=== PATIENT | female | born 1930 | race Caucasian/White ===

== ENCOUNTER → 2016-09-10 | Outpatient (CLI) | payer MEDICARE, BC, MEDICAID ==
[~2016-09-10] MED LIST: ALMACONE 360 M360 ML PO; ANTIVERT 25MG25 MG PO; ARICEPT10 MG PO; CEFTIN500 MG PO; DESYREL 50MG50 MG PO; DETROL LA4 PO; GLUCOPHAGE500 MG/TAB PO; IMODIUM 2MG CAPS2 MG PO; LABETALOL100 MG PO; LEVAQUIN 5500 MG/TA1 PO; MECLIZINE25 MG PO; MULTI VITAMINS1 TAB PO; NEURONTIN300 MG/CAP PO; NORCO 325 MG-51 TAB PO; NORMODYNE200 MG PO; NORVASC 5MG5 MG/TAB PO; NORVASC2.5 MG PO; PHENERGAN12.5 MG/SU RC; PLAVIX 75MG TAB75 MG PO; PRINIVIL20 MG PO; PROPOXYPHENE1 UDTAB PO; QUESTRAN4 GM/9 GM PO; RISPERDAL 0.20.25 MG PO; STARLIX120 MG PO; TRANDATE 100MG100 MG PO; TYLENOL 325MG325 MG; ULTRAM 50MG TAB50 MG PO; VITAMIN C500 MG PO; VOLTAREN GEL 1%1 TU TP; ZESTRIL 20MG TA20 MG PO; ZESTRIL40 MG PO
[2016-09-10 16:03] LABS: MEAN CELL VOLUME 96 fl (80.0-100.0); MEAN CORPUSCULAR HGB CONC 35 g/dl (33.0-37.0); MEAN PLATELET VOLUME 9.8 fl (7.4-10.4); PLATELET COUNT 294 K/mm3 (130-400); RED BLOOD COUNT 3.21 M/mm3 (4.10-5.30); REDCELL DISTRIBUTION WIDTH-CV 12.8 % (11.5-14.5); WHITE BLOOD COUNT 6.5 K/mm3 (4.8-10.8)
[2016-09-10 16:13] LABS: HEMATOCRIT 30.9 % (37.0-47.0); HEMOGLOBIN 10.7 g/dl (12.5-16.0); MEAN CORPUSCULAR HEMOGLOBIN 33 pg (27.0-31.0)
[2016-09-10 16:15] LABS: ADJUSTED CALCIUM 10.1 mg/dL (8.4-10.2); ALBUMIN 3.7 gm/dL (3.5-5.0); BILIRUBIN,TOTAL 0.6 mg/dL (0.0-1.0); CALCIUM 9.9 mg/dL (8.4-10.2); CREATININE, serum 0.86 mg/dL (0.52-1.25); TOTAL PROTEIN 6.7 gm/dL (6.4-8.2)
[2016-09-10 16:44] LABS: THYROID STIMULATING HORMONE 1.63 uIU/mL (0.465-4.680)
== END ==
LOC: ZLAB.STJ 14:28
PROVIDERS: Internal Medicine
DX: E11.9 Type 2 diabetes mellitus without complications (principal)

== ENCOUNTER → 2016-09-27 | Outpatient (CLI) | payer MEDICARE, BC, MEDICAID | LOC: ZLAB.STJ 15:22 | DX: Z01.89 Encounter for other specified special examinations (principal) ==

== ENCOUNTER → 2016-12-20 | Outpatient (CLI) | payer MEDICARE, BC, MEDICAID | LOC: ZLAB.STJ 18:45 | DX: E11.9 Type 2 diabetes mellitus without complications (principal) ==

== ENCOUNTER → 2017-01-12 | Outpatient (CLI) | payer MEDICARE, BC, MEDICAID ==
[2017-01-12 17:00] LABS: PH 5 (5-8); SQUAMOUS EPITHELIAL 0-2 /hpf; URINE APPEARANCE Hazy; URINE BACTERIA Moderate /hpf; URINE BILIRUBIN Negative (NEGATIVE); URINE BLOOD Negative (NEGATIVE); URINE COLOR Amber; URINE GLUCOSE Negative (NEGATIVE); URINE KETONE Negative (NEGATIVE); URINE UROBILINOGEN Negative (NEGATIVE)
[2017-01-12 17:01] LABS: URINE WBC >50 /hpf
== END ==
LOC: ZCOL.LAB 16:37
PROVIDERS: Internal Medicine
DX: N39.0 Urinary tract infection, site not specified (principal)

== ENCOUNTER 2017-03-07 21:37 | Emergency (ER) | payer MEDICARE, BC, MEDICAID ==
[2005-09-17 17:18] VITALS: BP 151/85
[~2017-03-07] VITALS: Ht 157.5 cm; Wt 59.1 kg
[~2017-03-07 21:37] MED LIST changes: -ALMACONE 360 M360 ML PO; -DESYREL 50MG50 MG PO; -PHENERGAN12.5 MG/SU RC; -PRINIVIL20 MG PO; -TYLENOL 325MG325 MG
[2017-03-07 21:38] VITALS: BP 127/50; TEMP 97.6
[2017-03-07 23:52] VITALS: PULSE 69
[2017-03-08] MEDS ORDERED: PRINIVIL20 MG PO (05:09)
[2017-03-08] MEDS ORDERED: PHENERGAN12.5 MG/SU RC (05:12)
[2017-03-08] MEDS ORDERED: ALMACONE 360 M360 ML PO (05:12)
[2017-03-08] MEDS ORDERED: TYLENOL 325MG325 MG (05:13)
[2017-03-08] MEDS ORDERED: DESYREL 50MG50 MG PO (05:13)
[2017-03-08] MEDS ORDERED: MULTI VITAMINS1 TAB PO (05:14)
== END 2017-03-07 23:52 | disposition home or self-care (01) ==
LOC: COL.ER 21:37
DX: S09.90XA Unspecified injury of head, initial encounter (principal); S01.81XA Laceration without foreign body of other part of head, initial encounter; I10 Essential (primary) hypertension; Z23 Encounter for immunization; Z79.02 Long term (current) use of antithrombotics/antiplatelets; W18.39XA Other fall on same level, initial encounter; W22.09XA Striking against other stationary object, initial encounter; Y92.009 Unspecified place in unspecified non-institutional (private) residence as the place of occurrence of the external cause

== ENCOUNTER → 2017-03-22 | Outpatient (CLI) | payer MEDICARE, BC, MEDICAID ==
[~2017-03-22] MED LIST changes: +ALMACONE 360 M360 ML PO; +DESYREL 50MG50 MG PO; +PHENERGAN12.5 MG/SU RC; +PRINIVIL20 MG PO; +TYLENOL 325MG325 MG
[2017-03-22 15:51] LABS: BASO # 0.1 (0.0-0.2); BASO % 0.8 % (0.0-2.0); EOS # 0.2 (0.0-0.7); EOS % 2.4 % (0-4.0); GRAN # 5.9 (1.4-6.5); GRAN % 71.8 % (42.2-75.2); LYMPH # 1.5 (1.2-3.4); LYMPH % 18.6 % (20.0-51.0); MEAN CELL VOLUME 94 fl (80.0-100.0); MEAN CORPUSCULAR HGB CONC 35 g/dl (33.0-37.0); MEAN PLATELET VOLUME 9.4 fl (7.4-10.4); MONO # 0.5 (0.1-0.6); MONO % 5.9 % (1.7-9.3); PLATELET COUNT 286 K/mm3 (130-400); RED BLOOD COUNT 3.37 M/mm3 (4.10-5.30); REDCELL DISTRIBUTION WIDTH-CV 12.8 % (11.5-14.5); WHITE BLOOD COUNT 8.3 K/mm3 (4.8-10.8)
[2017-03-22 15:52] LABS: HEMATOCRIT 31.8 % (37.0-47.0); HEMOGLOBIN 11.1 g/dl (12.5-16.0); MEAN CORPUSCULAR HEMOGLOBIN 33 pg (27.0-31.0)
[2017-03-22 16:11] LABS: ADJUSTED CALCIUM 10.2 mg/dL (8.4-10.2); ALBUMIN 3.9 gm/dL (3.5-5.0); BILIRUBIN,TOTAL 0.5 mg/dL (0.0-1.0); CALCIUM 10.1 mg/dL (8.4-10.2); CREATININE, serum 0.93 mg/dL (0.52-1.25); POTASSIUM 5.4 mmol/L (3.4-5.0); TOTAL PROTEIN 6.8 gm/dL (6.4-8.2)
== END ==
LOC: ZLAB.STJ 15:44
PROVIDERS: Internal Medicine
DX: E11.9 Type 2 diabetes mellitus without complications (principal); I10 Essential (primary) hypertension

== ENCOUNTER → 2017-06-20 | Outpatient (CLI) | payer MEDICARE, BC, MEDICAID ==
[2017-06-20 09:51] LABS: BASO # 0.1 (0.0-0.2); BASO % 0.9 % (0.0-2.0); EOS # 0.3 (0.0-0.7); EOS % 4.6 % (0-4.0); GRAN # 4.1 (1.4-6.5); LYMPH # 1.8 (1.2-3.4); LYMPH % 26.8 % (20.0-51.0); MEAN CELL VOLUME 98 fl (80.0-100.0); MEAN CORPUSCULAR HGB CONC 34 g/dl (33.0-37.0); MEAN PLATELET VOLUME 10.2 fl (7.4-10.4); MONO # 0.4 (0.1-0.6); MONO % 6.4 % (1.7-9.3); PLATELET COUNT 239 K/mm3 (130-400); RED BLOOD COUNT 3.29 M/mm3 (4.10-5.30); WHITE BLOOD COUNT 6.7 K/mm3 (4.8-10.8)
[2017-06-20 09:53] LABS: HEMATOCRIT 32.2 % (37.0-47.0); MEAN CORPUSCULAR HEMOGLOBIN 33 pg (27.0-31.0)
[2017-06-20 10:08] LABS: ADJUSTED CALCIUM 10.3 mg/dL (8.4-10.2); ALBUMIN 3.9 gm/dL (3.5-5.0); BILIRUBIN,TOTAL 0.6 mg/dL (0.0-1.0); CALCIUM 10.2 mg/dL (8.4-10.2); CREATININE, serum 0.94 mg/dL (0.52-1.25); POTASSIUM 4.3 mmol/L (3.4-5.0); TOTAL PROTEIN 7.1 gm/dL (6.4-8.2)
[2017-06-20 10:36] LABS: THYROID STIMULATING HORMONE 1.96 uIU/mL (0.465-4.680)
== END ==
LOC: ZLAB.STJ 09:39
PROVIDERS: Internal Medicine
DX: I25.10 Atherosclerotic heart disease of native coronary artery without angina pectoris (principal); E11.9 Type 2 diabetes mellitus without complications; E03.9 Hypothyroidism, unspecified; I10 Essential (primary) hypertension

== ENCOUNTER 2017-07-14 10:31 | Inpatient (IN) | payer MEDICARE, BC, MEDICAID ==
[~2017-07-14] VITALS: Ht 157.5 cm; Wt 65.9 kg
[2017-07-14 11:01] LABS: BASO # 0.1 (0.0-0.2); BASO % 0.4 % (0.0-2.0); EOS # 0.1 (0.0-0.7); EOS % 0.4 % (0-4.0); GRAN # 9.5 (1.4-6.5); GRAN % 81.2 % (42.2-75.2); LYMPH # 1.4 (1.2-3.4); LYMPH % 12.3 % (20.0-51.0); MEAN CELL VOLUME 96 fl (80.0-100.0); MEAN CORPUSCULAR HGB CONC 34 g/dl (33.0-37.0); MEAN PLATELET VOLUME 10.5 fl (7.4-10.4); MONO # 0.6 (0.1-0.6); MONO % 5.2 % (1.7-9.3); PLATELET COUNT 214 K/mm3 (130-400); RED BLOOD COUNT 3.24 M/mm3 (4.10-5.30); REDCELL DISTRIBUTION WIDTH-CV 12.6 % (11.5-14.5)
[2017-07-14 11:03] LABS: HEMATOCRIT 31.2 % (37.0-47.0); HEMOGLOBIN 10.7 g/dl (12.5-16.0); MEAN CORPUSCULAR HEMOGLOBIN 33 pg (27.0-31.0)
[2017-07-14 11:18] LABS: INFLUENZA A NEGATIVE; INFLUENZA B NEGATIVE
[2017-07-14] MEDS ORDERED: TYLENOL 325MG325 MG PO (11:52)
[2017-07-14] MEDS ORDERED: VOLTAREN GEL 1%1 TU TP (11:53)
[2017-07-14 11:56] LABS: ALBUMIN 3.8 gm/dL (3.5-5.0); BILIRUBIN,TOTAL 0.6 mg/dL (0.0-1.0); CALCIUM 9.6 mg/dL (8.4-10.2); CREATININE, serum 1.14 mg/dL (0.52-1.25); MAGNESIUM 1.6 mg/dL (1.6-2.3); PHOSPHOROUS 3.2 mg/dL (2.5-4.5); POTASSIUM 3.1 mmol/L (3.4-5.0); TOTAL PROTEIN 6.8 gm/dL (6.4-8.2)
[2017-07-14 12:08] LABS: TROPONIN-I 0.046 ng/mL (0.000-0.034)
[2017-07-14 12:15] LABS: COLLECTION METHOD CATHETER
[2017-07-14 12:25] LABS: MUCOUS Present /lpf; PH 5 (5-8); SQUAMOUS EPITHELIAL 0-2 /hpf; URINE APPEARANCE Cloudy; URINE BACTERIA Rare /hpf; URINE BILIRUBIN Negative (NEGATIVE); URINE BLOOD 1+ (NEGATIVE); URINE COLOR Amber; URINE GLUCOSE Negative (NEGATIVE); URINE KETONE Trace (NEGATIVE); URINE LEUKOCYTE ESTERASE 3+ (NEGATIVE); URINE NITRATE Positive (NEGATIVE); URINE PROTEIN(semi-quant) 2+ (NEGATIVE); URINE UROBILINOGEN >=4.0 mg/dL (NEGATIVE)
[2017-07-14 14:24] VITALS: BP 129/52; PULSE 58; TEMP 98.3
[2017-07-14] MEDS ORDERED: IMODIUM 2MG CAPS2 MG PO (14:24)
[2017-07-14] MEDS ORDERED: ALMACONE 360 M360 ML PO (14:24)
[2017-07-14] MEDS ORDERED: PHENERGAN25 MG RC (14:26)
[2017-07-14 16:29] VITALS: BP 142/53; PULSE 61; TEMP 98.6
[2017-07-14 20:05] VITALS: BP 142/58; PULSE 77; TEMP 98
[2017-07-14 21:55] VITALS: BP 147/42; PULSE 72
[2017-07-15 00:51] VITALS: BP 143/36; PULSE 75; TEMP 98.7
[2017-07-15 04:54] VITALS: BP 148/51; PULSE 63; TEMP 97.4
[2017-07-15 06:43] LABS: BASO % 0.5 % (0.0-2.0); EOS # 0.3 (0.0-0.7); EOS % 3.9 % (0-4.0); GRAN # 3.8 (1.4-6.5); GRAN % 59.1 % (42.2-75.2); LYMPH # 1.8 (1.2-3.4); LYMPH % 28.8 % (20.0-51.0); MEAN CELL VOLUME 99 fl (80.0-100.0); MEAN CORPUSCULAR HGB CONC 33 g/dl (33.0-37.0); MEAN PLATELET VOLUME 10.1 fl (7.4-10.4); MONO # 0.5 (0.1-0.6); MONO % 7.4 % (1.7-9.3); PLATELET COUNT 190 K/mm3 (130-400); RED BLOOD COUNT 2.85 M/mm3 (4.10-5.30); REDCELL DISTRIBUTION WIDTH-CV 12.8 % (11.5-14.5)
[2017-07-15 06:48] LABS: HEMATOCRIT 28.2 % (37.0-47.0); HEMOGLOBIN 9.4 g/dl (12.5-16.0); MEAN CORPUSCULAR HEMOGLOBIN 33 pg (27.0-31.0)
[2017-07-15 07:02] LABS: CALCIUM 9.3 mg/dL (8.4-10.2); CHOLESTEROL RISK RATIO 3.4; CREATININE, serum 1.22 mg/dL (0.52-1.25); MAGNESIUM 2.4 mg/dL (1.6-2.3); POTASSIUM 3.3 mmol/L (3.4-5.0)
[2017-07-15 07:04] LABS: TROPONIN-I 0.016 ng/mL (0.000-0.034)
[2017-07-15 08:05] VITALS: BP 152/58; PULSE 67; TEMP 98.3
[2017-07-15 12:01] VITALS: BP 109/88; PULSE 83; TEMP 98.5
[2017-07-15 15:32] VITALS: BP 155/68; PULSE 73; TEMP 98.7
[2017-07-15 20:18] VITALS: BP 154/56; PULSE 72; TEMP 98.3
[2017-07-16 07:11] LABS: BASO % 0.6 % (0.0-2.0); EOS # 0.2 (0.0-0.7); GRAN # 3.6 (1.4-6.5); LYMPH # 1.9 (1.2-3.4); LYMPH % 30.7 % (20.0-51.0); MEAN CELL VOLUME 97 fl (80.0-100.0); MEAN CORPUSCULAR HGB CONC 34 g/dl (33.0-37.0); MEAN PLATELET VOLUME 9.9 fl (7.4-10.4); MONO # 0.5 (0.1-0.6); MONO % 8.4 % (1.7-9.3); PLATELET COUNT 238 K/mm3 (130-400); RED BLOOD COUNT 3.09 M/mm3 (4.10-5.30); REDCELL DISTRIBUTION WIDTH-CV 12.5 % (11.5-14.5)
[2017-07-16 07:14] LABS: HEMATOCRIT 29.9 % (37.0-47.0); HEMOGLOBIN 10.2 g/dl (12.5-16.0); MEAN CORPUSCULAR HEMOGLOBIN 33 pg (27.0-31.0)
[2017-07-16 07:19] LABS: CREATININE, serum 0.82 mg/dL (0.52-1.25); POTASSIUM 3.6 mmol/L (3.4-5.0)
[2017-07-16 08:52] VITALS: BP 161/85; PULSE 67; TEMP 97.9
[2017-07-16 11:57] VITALS: BP 153/48; PULSE 65; TEMP 99.3
[2017-07-16 15:40] VITALS: BP 148/69; PULSE 107; TEMP 97.6
[2017-07-16 15:57] VITALS: BP 159/69; PULSE 67; TEMP 99
[2017-07-16 20:16] VITALS: BP 168/63; PULSE 91; TEMP 98.6
[2017-07-17 00:47] VITALS: BP 147/48; PULSE 73; TEMP 98.5
[2017-07-17 05:18] VITALS: BP 140/65; PULSE 82; TEMP 98.7
[2017-07-17 06:13] LABS: MEAN CELL VOLUME 97 fl (80.0-100.0); MEAN CORPUSCULAR HGB CONC 34 g/dl (33.0-37.0); MEAN PLATELET VOLUME 9.9 fl (7.4-10.4); PLATELET COUNT 259 K/mm3 (130-400); RED BLOOD COUNT 3.06 M/mm3 (4.10-5.30); REDCELL DISTRIBUTION WIDTH-CV 12.7 % (11.5-14.5)
[2017-07-17 06:18] LABS: HEMATOCRIT 29.8 % (37.0-47.0); MEAN CORPUSCULAR HEMOGLOBIN 33 pg (27.0-31.0)
[2017-07-17 06:25] LABS: CALCIUM 9.9 mg/dL (8.4-10.2); CREATININE, serum 1.11 mg/dL (0.52-1.25); POTASSIUM 3.9 mmol/L (3.4-5.0)
[2017-07-17 07:48] VITALS: BP 138/52; PULSE 62; TEMP 98.2
[2017-07-17 11:50] VITALS: BP 145/53; PULSE 73; TEMP 98.3
[2017-07-17 16:05] VITALS: BP 149/54; PULSE 68; TEMP 98
[2017-07-17 19:43] VITALS: BP 162/47; PULSE 62; TEMP 98
[2017-07-18] VITALS (7 sets, daily range): BP systolic 97–167; BP diastolic 42–72; PULSE 62–95; TEMP 97.4–98.9
[2017-07-19 05:49] VITALS: BP 149/82; PULSE 74; TEMP 98.3
[2017-07-19 07:53] VITALS: BP 142/65; PULSE 61; TEMP 99
[2017-07-19] MEDS ORDERED: BACTRIM DS 8001 TAB PO (09:06)
[2017-07-19] MEDS ORDERED: ASPIRIN 81M81 MG/TA2 PO (09:08)
[2017-07-19 09:33] VITALS: BP 142/65; PULSE 61; TEMP 99
== END 2017-07-19 10:36 | DRG 193 ==
LOC: COL.ER 10:31 → MEDICAL 12:33
PROVIDERS: Emergency Medicine; Internal Medicine; Nurse Practitioner Family; Physician Assistant
DX: J18.9 Pneumonia, unspecified organism (principal); G92 Toxic encephalopathy; N39.0 Urinary tract infection, site not specified; I12.9 Hypertensive chronic kidney disease with stage 1 through stage 4 chronic kidney disease, or unspecified chronic kidney disease; E11.22 Type 2 diabetes mellitus with diabetic chronic kidney disease; N18.3 Chronic kidney disease, stage 3 (moderate); I25.10 Atherosclerotic heart disease of native coronary artery without angina pectoris; K58.9 Irritable bowel syndrome, unspecified; F03.90 Unspecified dementia, unspecified severity, without behavioral disturbance, psychotic disturbance, mood disturbance, and anxiety; E11.42 Type 2 diabetes mellitus with diabetic polyneuropathy; E87.6 Hypokalemia; B95.7 Other staphylococcus as the cause of diseases classified elsewhere
CPT/HCPCS: 99222-AI; 99232-AI; 99233-AI; J0456; J0696; J1644; J3475; J7030; J7050

== ENCOUNTER 2017-12-01 12:41 | Emergency (ER) | payer MEDICARE, BC, MEDICAID ==
[2005-09-17 17:18] VITALS: BP 151/85
[~2017-12-01] VITALS: Ht 157.5 cm; Wt 70.5 kg
[~2017-12-01 12:41] MED LIST changes: +ASPIRIN 81M81 MG/TA2 PO; +BACTRIM DS 8001 TAB PO; +PHENERGAN25 MG RC; +TYLENOL 325MG325 MG PO
[2017-12-01 12:42] VITALS: TEMP 98.3
[2017-12-01 14:30] VITALS: BP 163/79; PULSE 64
== END 2017-12-01 15:08 | disposition home or self-care (01) ==
LOC: COL.ER 12:41
DX: S09.90XA Unspecified injury of head, initial encounter (principal); S00.03XA Contusion of scalp, initial encounter; R40.2412 Glasgow coma scale score 13-15, at arrival to emergency department; I10 Essential (primary) hypertension; F03.90 Unspecified dementia, unspecified severity, without behavioral disturbance, psychotic disturbance, mood disturbance, and anxiety; Z79.82 Long term (current) use of aspirin; Z79.02 Long term (current) use of antithrombotics/antiplatelets; W05.0XXA Fall from non-moving wheelchair, initial encounter; Y92.129 Unspecified place in nursing home as the place of occurrence of the external cause

== ENCOUNTER 2018-01-11 13:04 | Emergency (ER) | payer MEDICARE, BC, MEDICAID ==
[2005-09-17 17:18] VITALS: BP 151/85
[~2018-01-11] VITALS: Ht 160 cm; Wt 79.5 kg
[2018-01-11 13:27] VITALS: TEMP 100.3
[2018-01-11 13:47] LABS: BASO # 0.1 (0.0-0.2); BASO % 0.4 % (0.0-2.0); EOS % 0.1 % (0-4.0); GRAN # 11.1 (1.4-6.5); GRAN % 86.3 % (42.2-75.2); HEMOGLOBIN 10.5 g/dl (12.5-16.0); LYMPH % 7.6 % (20.0-51.0); MEAN CELL VOLUME 96 fl (80.0-100.0); MEAN CORPUSCULAR HEMOGLOBIN 33 pg (27.0-31.0); MEAN CORPUSCULAR HGB CONC 35 g/dl (33.0-37.0); MEAN PLATELET VOLUME 9.8 fl (7.4-10.4); MONO # 0.7 (0.1-0.6); MONO % 5.2 % (1.7-9.3); PLATELET COUNT 194 K/mm3 (130-400); RED BLOOD COUNT 3.17 M/mm3 (4.10-5.30); REDCELL DISTRIBUTION WIDTH-CV 13.5 % (11.5-14.5)
[2018-01-11 13:53] LABS: HEMATOCRIT 30.4 % (37.0-47.0)
[2018-01-11 13:57] LABS: ALBUMIN 3.5 gm/dL (3.5-5.0); BILIRUBIN,TOTAL 0.9 mg/dL (0.0-1.0); CALCIUM 9.8 mg/dL (8.4-10.2); CREATININE, serum 1.06 mg/dL (0.52-1.25); POTASSIUM 3.8 mmol/L (3.4-5.0); TOTAL PROTEIN 6.6 gm/dL (6.4-8.2)
[2018-01-11 14:03] LABS: COLLECTION METHOD CATHETER
[2018-01-11 14:12] LABS: TROPONIN-I 0.179 ng/mL (0.000-0.034)
[2018-01-11 14:15] LABS: MUCOUS Present /lpf; PH 5 (5-8); URINE APPEARANCE Cloudy; URINE BACTERIA Many /hpf; URINE BILIRUBIN Negative (NEGATIVE); URINE BLOOD Negative (NEGATIVE); URINE COLOR Yellow; URINE GLUCOSE Negative (NEGATIVE); URINE KETONE Negative (NEGATIVE); URINE LEUKOCYTE ESTERASE 1+ (NEGATIVE); URINE NITRATE Positive (NEGATIVE); URINE PROTEIN(semi-quant) Negative (NEGATIVE); URINE RBC None Seen /hpf; URINE UROBILINOGEN Negative (NEGATIVE)
[2018-01-11 15:45] VITALS: BP 110/52; PULSE 72
== END 2018-01-11 15:45 | disposition short-term general hospital (02) ==
LOC: COL.ER 13:04
PROVIDERS: Emergency Medicine
DX: R41.82 Altered mental status, unspecified (principal); N39.0 Urinary tract infection, site not specified; F03.90 Unspecified dementia, unspecified severity, without behavioral disturbance, psychotic disturbance, mood disturbance, and anxiety; I25.10 Atherosclerotic heart disease of native coronary artery without angina pectoris; I12.9 Hypertensive chronic kidney disease with stage 1 through stage 4 chronic kidney disease, or unspecified chronic kidney disease; N18.9 Chronic kidney disease, unspecified; R79.89 Other specified abnormal findings of blood chemistry; Z86.73 Personal history of transient ischemic attack (TIA), and cerebral infarction without residual deficits; Z79.82 Long term (current) use of aspirin; Z79.02 Long term (current) use of antithrombotics/antiplatelets
CPT/HCPCS: J0696; J3370; J7030; J7050

== ENCOUNTER 2018-03-01 12:24 | Observation (INO) | payer MEDICARE, BC, MEDICAID ==
[~2018-03-01] VITALS: Ht 162.6 cm; Wt 61.8 kg
[2018-03-01 12:52] LABS: BASO # 0.1 (0.0-0.2); BASO % 0.9 % (0.0-2.0); EOS # 0.4 (0.0-0.7); EOS % 4.4 % (0-4.0); GRAN # 6.2 (1.4-6.5); HEMOGLOBIN 11.4 g/dl (12.5-16.0); LYMPH % 21.3 % (20.0-51.0); MEAN CELL VOLUME 99 fl (80.0-100.0); MEAN CORPUSCULAR HEMOGLOBIN 33 pg (27.0-31.0); MEAN CORPUSCULAR HGB CONC 33 g/dl (33.0-37.0); MONO # 0.6 (0.1-0.6); MONO % 6.2 % (1.7-9.3); PLATELET COUNT 213 K/mm3 (130-400); RED BLOOD COUNT 3.49 M/mm3 (4.10-5.30); REDCELL DISTRIBUTION WIDTH-CV 13.9 % (11.5-14.5)
[2018-03-01 12:54] LABS: HEMATOCRIT 34.5 % (37.0-47.0)
[2018-03-01 12:59] LABS: PROTHROMBIN TIME 11.9 SECONDS (9.7-12.8)
[2018-03-01 13:02] LABS: ALANINE AMINOTRANSFERASE 41 U/L (9-52); ALBUMIN 3.8 gm/dL (3.5-5.0); ALKALINE PHOSPHATASE 62 U/L (50-136); ANION GAP 10 mmol/L (7-16); AST,SGOT 40 U/L (15-37); BILIRUBIN,TOTAL 0.2 mg/dL (0.0-1.0); BLOOD UREA NITROGEN 44 mg/dL (7-17); CARBON DIOXIDE 24 mmol/L (22-30); CHLORIDE 104 mmol/L (98-107); CREATININE, serum 0.96 mg/dL (0.52-1.25); GLUCOSE 162 mg/dL (74-106); LIPASE 85 U/L (23-300); PARTIAL THROMBOPLASTIN TIME 29.8 SECONDS (26.0-37.0); POTASSIUM 4.2 mmol/L (3.4-5.0); SODIUM 138 mmol/L (137-145)
[2018-03-01 13:03] LABS: C-REACTIVE PROTEIN < 0.5 mg/dL (0.0-0.9)
[2018-03-01 13:12] LABS: COLLECTION METHOD CATHETER
[2018-03-01 13:13] LABS: TROPONIN-I < 0.012 ng/mL (0.000-0.034)
[2018-03-01 13:25] LABS: MUCOUS Present /lpf; PH 5 (5-8); URINE APPEARANCE Cloudy; URINE BACTERIA Many /hpf; URINE BILIRUBIN Negative (NEGATIVE); URINE BLOOD Negative (NEGATIVE); URINE COLOR Yellow; URINE GLUCOSE Negative (NEGATIVE); URINE KETONE Negative (NEGATIVE); URINE LEUKOCYTE ESTERASE 3+ (NEGATIVE); URINE NITRATE Positive (NEGATIVE); URINE PROTEIN(semi-quant) 1+ (NEGATIVE); URINE RBC 20-50 /hpf; URINE UROBILINOGEN Negative (NEGATIVE)
[2018-03-01] MEDS ORDERED: LIPITOR20 MG PO (13:29)
[2018-03-01] MEDS ORDERED: TOPROL XL 50MG50 MG PO (13:30)
[2018-03-01] MEDS ORDERED: MILK OF MA400 MG/52 (13:34)
[2018-03-01 15:56] VITALS: BP 162/71; PULSE 58; TEMP 98.8
[2018-03-01 16:00] VITALS: BP 132/71; PULSE 58; TEMP 98.8
[2018-03-01 20:20] VITALS: BP 139/68; PULSE 58; TEMP 98.6
[2018-03-02 02:53] VITALS: BP 101/59; PULSE 73; TEMP 98.6
[2018-03-02 06:25] VITALS: BP 101/59; PULSE 73
[2018-03-02 07:06] VITALS: BP 161/61; PULSE 70; TEMP 98.3
[2018-03-02 07:30] LABS: CHOLESTEROL RISK RATIO 2.4
[2018-03-02 07:41] LABS: TROPONIN-I 0.034 ng/mL (0.000-0.034)
[2018-03-02 11:10] VITALS: BP 119/51; PULSE 67; TEMP 98.4
[2018-03-02] MEDS ORDERED: RANEXA 500MG T500 MG PO (14:29)
[2018-03-02] MEDS ORDERED: LOPRESSOR 225 MG/TAB PO (14:30)
[2018-03-02] MEDS ORDERED: CEFTIN 250250 MG/TAB PO (14:31)
[2018-03-02 15:13] VITALS: BP 119/51; PULSE 67; TEMP 98.4
== END 2018-03-02 16:25 ==
LOC: COL.ER 12:24 → MEDICAL 14:32
PROVIDERS: Emergency Medicine; Physician Assistant
DX: R07.9 Chest pain, unspecified (principal); R00.1 Bradycardia, unspecified; N39.0 Urinary tract infection, site not specified; F03.90 Unspecified dementia, unspecified severity, without behavioral disturbance, psychotic disturbance, mood disturbance, and anxiety; Z86.73 Personal history of transient ischemic attack (TIA), and cerebral infarction without residual deficits; Z79.02 Long term (current) use of antithrombotics/antiplatelets; E11.40 Type 2 diabetes mellitus with diabetic neuropathy, unspecified; E11.22 Type 2 diabetes mellitus with diabetic chronic kidney disease; I12.9 Hypertensive chronic kidney disease with stage 1 through stage 4 chronic kidney disease, or unspecified chronic kidney disease; N18.3 Chronic kidney disease, stage 3 (moderate); R53.81 Other malaise; E78.5 Hyperlipidemia, unspecified; Z79.899 Other long term (current) drug therapy
CPT/HCPCS: G0378; J0696; J1650

== ENCOUNTER → 2018-06-19 | Outpatient (CLI) | payer MEDICARE, BC, MEDICAID ==
[~2018-06-19] MED LIST changes: +CEFTIN 250250 MG/TAB PO; +LIPITOR20 MG PO; +LOPRESSOR 225 MG/TAB PO; +MILK OF MA400 MG/52; +RANEXA 500MG T500 MG PO; +TOPROL XL 50MG50 MG PO
[2018-06-19 13:10] LABS: CALCIUM 9.2 mg/dL (8.4-10.2); CREATININE, serum 1.12 mg/dL (0.52-1.25)
== END ==
LOC: ZLAB.STJ 10:27
PROVIDERS: Internal Medicine
DX: E11.40 Type 2 diabetes mellitus with diabetic neuropathy, unspecified (principal); N18.3 Chronic kidney disease, stage 3 (moderate); E11.22 Type 2 diabetes mellitus with diabetic chronic kidney disease

== ENCOUNTER → 2018-06-27 | Outpatient (CLI) | payer MEDICARE, BC, MEDICAID ==
[2018-06-27 16:58] LABS: BASO # 0.1 (0.0-0.2); BASO % 0.5 % (0.0-2.0); CALCIUM 9.6 mg/dL (8.4-10.2); CREATININE, serum 1.28 mg/dL (0.52-1.25); EOS # 0.1 (0.0-0.7); EOS % 1.3 % (0-4.0); GRAN # 7.4 (1.4-6.5); GRAN % 77.3 % (42.2-75.2); HEMOGLOBIN 10.8 g/dl (12.5-16.0); LYMPH # 1.6 (1.2-3.4); LYMPH % 16.6 % (20.0-51.0); MEAN CELL VOLUME 101 fl (80.0-100.0); MEAN CORPUSCULAR HEMOGLOBIN 33 pg (27.0-31.0); MEAN CORPUSCULAR HGB CONC 33 g/dl (33.0-37.0); MONO # 0.4 (0.1-0.6); PLATELET COUNT 267 K/mm3 (130-400); POTASSIUM 3.7 mmol/L (3.4-5.0); RED BLOOD COUNT 3.29 M/mm3 (4.10-5.30); REDCELL DISTRIBUTION WIDTH-CV 13.5 % (11.5-14.5)
[2018-06-27 17:01] LABS: HEMATOCRIT 33.1 % (37.0-47.0)
== END ==
LOC: ZLAB.STJ 16:44 → ZCOL.LAB 16:44
PROVIDERS: Internal Medicine
DX: I10 Essential (primary) hypertension (principal)

== ENCOUNTER → 2018-09-28 | Outpatient (CLI) | payer MEDICARE, BC ==
[2018-09-28 09:15] LABS: BASO % 0.5 % (0.0-2.0); EOS # 0.1 (0.0-0.7); EOS % 1.2 % (0-4.0); GRAN # 6.1 (1.4-6.5); GRAN % 72.9 % (42.2-75.2); LYMPH # 1.4 (1.2-3.4); LYMPH % 16.4 % (20.0-51.0); MEAN CELL VOLUME 99 fl (80.0-100.0); MEAN CORPUSCULAR HGB CONC 34 g/dl (33.0-37.0); MEAN PLATELET VOLUME 9.7 fl (7.4-10.4); MONO # 0.7 (0.1-0.6); MONO % 8.2 % (1.7-9.3); PLATELET COUNT 286 K/mm3 (130-400); RED BLOOD COUNT 2.74 M/mm3 (4.10-5.30); REDCELL DISTRIBUTION WIDTH-CV 14.5 % (11.5-14.5)
[2018-09-28 09:22] LABS: HEMATOCRIT 27.2 % (37.0-47.0); HEMOGLOBIN 9.2 g/dl (12.5-16.0); MEAN CORPUSCULAR HEMOGLOBIN 34 pg (27.0-31.0)
[2018-09-28 09:26] LABS: BILIRUBIN,TOTAL 0.4 mg/dL (0.0-1.0); CALCIUM 9.1 mg/dL (8.4-10.2); CREATININE, serum 1.16 mg/dL (0.52-1.25); POTASSIUM 3.8 mmol/L (3.4-5.0); TOTAL PROTEIN 6.1 gm/dL (6.4-8.2)
[2018-09-28 09:56] LABS: THYROID STIMULATING HORMONE 1.11 uIU/mL (0.465-4.680)
== END ==
LOC: ZLAB.STJ 09:02
PROVIDERS: Internal Medicine
DX: N18.3 Chronic kidney disease, stage 3 (moderate) (principal); I25.110 Atherosclerotic heart disease of native coronary artery with unstable angina pectoris; E11.40 Type 2 diabetes mellitus with diabetic neuropathy, unspecified; E03.9 Hypothyroidism, unspecified

== ENCOUNTER → 2018-10-13 | Outpatient (CLI) | payer MEDICARE, BC ==
[2018-10-13 10:56] LABS: BILIRUBIN,TOTAL 0.4 mg/dL (0.0-1.0); CALCIUM 9.5 mg/dL (8.4-10.2); CREATININE, serum 1.29 (0.52-1.25); POTASSIUM 5.3 mmol/L (3.4-5.0)
== END ==
LOC: ZLAB.STJ 10:00
PROVIDERS: Internal Medicine
DX: E78.5 Hyperlipidemia, unspecified (principal); N18.3 Chronic kidney disease, stage 3 (moderate)

== ENCOUNTER → 2018-10-24 | Outpatient (CLI) | payer MEDICARE, BC ==
[2018-10-24 09:56] LABS: COLLECTION METHOD CLEAN CATCH
[2018-10-24 10:06] LABS: CALCIUM 9.6 mg/dL (8.4-10.2); CREATININE, serum 1.01 (0.52-1.25); POTASSIUM 4.2 mmol/L (3.4-5.0)
[2018-10-24 11:16] LABS: MUCOUS Present /lpf; PH 8 (5-8); SQUAMOUS EPITHELIAL 20-50 /hpf; URINE APPEARANCE Cloudy; URINE BACTERIA None Seen /hpf; URINE BILIRUBIN Negative (NEGATIVE); URINE BLOOD 1+ (NEGATIVE); URINE COLOR Yellow; URINE GLUCOSE Negative (NEGATIVE); URINE KETONE Negative (NEGATIVE); URINE LEUKOCYTE ESTERASE 3+ (NEGATIVE); URINE NITRATE Negative (NEGATIVE); URINE PROTEIN(semi-quant) Negative (NEGATIVE); URINE UROBILINOGEN Negative (NEGATIVE); URINE WBC >50 /hpf
== END ==
LOC: ZLAB.STJ 09:47 → ZCOL.LAB 09:47
PROVIDERS: Internal Medicine
DX: N39.0 Urinary tract infection, site not specified (principal); R79.9 Abnormal finding of blood chemistry, unspecified

== ENCOUNTER → 2018-10-24 | Outpatient (CLI) | payer MEDICARE, BC | LOC: ZLAB.STJ 10:14 | DX: R79.9 Abnormal finding of blood chemistry, unspecified (principal) ==

== ENCOUNTER → 2018-11-26 | Outpatient (CLI) | payer MEDICARE, BC ==
[~2018-11-26] MED LIST changes: +MAALOX MAX + ANT1 ML PO; +MELATONIN5 M1 SL; +NITROSTAT0.4 MG/TAB SL
[2018-11-26 12:02] LABS: CALCIUM 9.3 mg/dL (8.4-10.2); CREATININE, serum 0.94 (0.52-1.25); POTASSIUM 3.9 mmol/L (3.4-5.0)
== END ==
LOC: ZCOL.LAB 11:21
PROVIDERS: Nurse Practitioner
DX: I10 Essential (primary) hypertension (principal)

== ENCOUNTER 2018-11-29 04:52 | Emergency (ER) | payer MEDICARE, BC ==
[2005-09-17 17:18] VITALS: BP 151/85
[~2018-11-29 04:52] MED LIST changes: -MAALOX MAX + ANT1 ML PO; -MELATONIN5 M1 SL; -NITROSTAT0.4 MG/TAB SL
[2018-11-29 04:57] VITALS: TEMP 98.4
[2018-11-29] MEDS ORDERED: MELATONIN5 M1 SL (05:08)
[2018-11-29] MEDS ORDERED: ULTRAM 50MG TAB50 MG PO (05:09)
[2018-11-29] MEDS ORDERED: MAALOX MAX + ANT1 ML PO (05:10)
[2018-11-29] MEDS ORDERED: NITROSTAT0.4 MG/TAB SL (05:11)
[2018-11-29 05:28] LABS: BASO % 0.7 % (0.0-2.0); EOS # 0.2 (0.0-0.7); EOS % 3.6 % (0-4.0); GRAN # 3.6 (1.4-6.5); GRAN % 58.7 % (42.2-75.2); LYMPH # 1.8 (1.2-3.4); LYMPH % 29.9 % (20.0-51.0); MEAN CELL VOLUME 104 fl (80.0-100.0); MEAN CORPUSCULAR HGB CONC 33 g/dl (33.0-37.0); MEAN PLATELET VOLUME 9.6 fl (7.4-10.4); MONO # 0.4 (0.1-0.6); MONO % 6.9 % (1.7-9.3); PLATELET COUNT 207 K/mm3 (130-400); RED BLOOD COUNT 2.71 M/mm3 (4.10-5.30); REDCELL DISTRIBUTION WIDTH-CV 14.5 % (11.5-14.5)
[2018-11-29 05:29] LABS: HEMATOCRIT 28.2 % (37.0-47.0); HEMOGLOBIN 9.2 g/dl (12.5-16.0); MEAN CORPUSCULAR HEMOGLOBIN 34 pg (27.0-31.0)
[2018-11-29 05:37] LABS: ALANINE AMINOTRANSFERASE 15 U/L (9-52); ALBUMIN 3.1 gm/dL (3.5-5.0); ALKALINE PHOSPHATASE 71 U/L (50-136); ANION GAP 5 mmol/L (7-16); AST,SGOT 24 U/L (15-37); BILIRUBIN,TOTAL 0.4 mg/dL (0.0-1.0); BLOOD UREA NITROGEN 27 mg/dL (7-17); CALCIUM 9.3 mg/dL (8.4-10.2); CARBON DIOXIDE 29 mmol/L (22-30); CHLORIDE 107 mmol/L (98-107); CREATININE, serum 1.04 (0.52-1.25); GLUCOSE 115 mg/dL (74-106); LIPASE 62 U/L (23-300); POTASSIUM 3.3 mmol/L (3.4-5.0); SODIUM 141 mmol/L (137-145)
[2018-11-29 05:38] LABS: PROTHROMBIN TIME 11.7 SECONDS (9.7-12.8)
[2018-11-29 05:41] LABS: PARTIAL THROMBOPLASTIN TIME 32.4 SECONDS (26.0-37.0)
[2018-11-29 05:53] LABS: TROPONIN-I < 0.012 ng/mL (0.000-0.035)
[2018-11-29 09:01] VITALS: BP 141/75; PULSE 56
== END 2018-11-29 09:01 | disposition home or self-care (01) ==
LOC: COL.ER 04:52
PROVIDERS: Emergency Medicine
DX: R07.9 Chest pain, unspecified (principal); E11.22 Type 2 diabetes mellitus with diabetic chronic kidney disease; I12.9 Hypertensive chronic kidney disease with stage 1 through stage 4 chronic kidney disease, or unspecified chronic kidney disease; F03.90 Unspecified dementia, unspecified severity, without behavioral disturbance, psychotic disturbance, mood disturbance, and anxiety; N18.9 Chronic kidney disease, unspecified; I25.10 Atherosclerotic heart disease of native coronary artery without angina pectoris; Z86.73 Personal history of transient ischemic attack (TIA), and cerebral infarction without residual deficits; Z90.49 Acquired absence of other specified parts of digestive tract; Z90.710 Acquired absence of both cervix and uterus; Z79.82 Long term (current) use of aspirin; Z79.02 Long term (current) use of antithrombotics/antiplatelets

== ENCOUNTER → 2019-01-31 | Outpatient (CLI) | payer MEDICARE, BC ==
[~2019-01-31] MED LIST changes: +MAALOX MAX + ANT1 ML PO; +MELATONIN5 M1 SL; +NITROSTAT0.4 MG/TAB SL
== END ==
LOC: ZLAB.STJ 10:20
DX: E03.9 Hypothyroidism, unspecified (principal)